=== PATIENT | female | born 1940 | race Caucasian/White ===

== ENCOUNTER → 2017-12-12 | Outpatient (CLI) | payer MEDICARE, OTHER ==
--- NOTE | 2017-12-12 17:13 | BD ---
EXAMINATION TYPE: Axial Bone Density DATE OF EXAM: 12/12/2017 COMPARISON: 10/02/2013 CLINICAL HISTORY: Height: 64 IN Weight: 179 LBS FRAX RISK QUESTIONS: Family History (Parent hip fracture): YES FATHER History of Fracture in Adulthood: RT ANKLE AGE 74 LT ANKLE AGE 67 Secondary Osteoporosis: 3. Menopause before 45: YES HYSTERECTOMY AGE 33 RISK FACTORS HISTORY OF: Active: YES Postmenopausal woman: AGE 33 MEDICATIONS: Thyroid Medications: YES Which medication: Levothyroxine How Lon+ YEARS Additional Medications: CALCIUM, VIT D, LEVOTHYROXINE, BLOOD PRESSURE MEDS, LISINOPRIL, OCUVITE, TOPR OL, BABY ASPIRIN EXAM MEASUREMENTS: Bone mineral densitometry was performed using the [employer] System. Bone mineral density as measured about the Lumbar spine is: ----- L1-L4(G/cm2): 1.037 T Score Values are as follows: ----- L2: -1.4 ----- L3: -1.1 ----- L4: -1.1 ----- L1-L4: -1.2 Bone mineral density has: Decreased -0.4% since study of: 10/02/2013 Bone mineral density about the R hip (g/cm2): 0.869 Bone mineral density about the L hip (g/cm2): 0.887 T Score values are as follows: -----R Neck: -1.2 -----L Neck: -1.1 -----R Total: -0.9 -----L Total: 0.0 Bone mineral density has: Increased 0.3% since study of: 10/02/2013 IMPRESSION: Osteopenia (T Score between -2.5 and -1). There is slightly increased risk of fracture and the patient may be considered for treatment. Re-Screen 2-5 years. NOTE: T-SCORE=SD OF THE YOUNG ADULT MEAN.
--- NOTE | 2017-12-13 08:49 | MM ---
Reason for exam: screening (asymptomatic). Last mammogram was performed 3 years and 4 months ago. History: Patient is postmenopausal. Physical Findings: A clinical breast exam by your physician is recommended on an annual basis and results should be correlated with mammographic findings. MG 3D Screening Mammo W/Cad Bilateral CC and MLO view(s) were taken. Prior study comparison: August 11, 2014, bilateral MG screening mammo w CAD. July 23, 2013, bilateral digital screening mammo w/CAD. The breast tissue is heterogeneously dense. This may lower the sensitivity of mammography. Stable benign calcifications. There is no discrete abnormality. No significant changes when compared with prior studies. ASSESSMENT: Benign, BI-RAD 2 RECOMMENDATION: Routine screening mammogram of both breasts in 1 year.
== END | disposition home or self-care (01) ==
LOC: RADMAMWWP 09:28
PROVIDERS: ATTEND Family Medicine
DX: Z12.31 Encounter for screening mammogram for malignant neoplasm of breast (principal); M85.89 Other specified disorders of bone density and structure, multiple sites; Z78.0 Asymptomatic menopausal state
CPT/HCPCS: 77063; 77067; 77080

== ENCOUNTER 2018-09-11 08:09 | Day surgery (SDC) | payer MEDICARE, OTHER ==
[2018-09-05 16:40] VITALS: BMI 28.9
[~2018-09-11 08:09] MED LIST: LACTATED RINGERS 1,000 ML IV SCH; LIDOCAINE 1% 20 ML VIAL (10MG/ML) FOR IV START INTRADERMA PRN
[2018-09-11 08:29] VITALS: RESP 18; TEMP 97.8
[2018-09-11] MEDS ORDERED: LACTATED RINGERS 1,000 ML IV ONE (08:29)
[2018-09-11] MEDS ORDERED: PROPOFOL 10 MG/ML 20 ML VIAL IV ONE (08:57)
[2018-09-11] MEDS ORDERED: LIDOCAINE 1% INJ 10MG/ML (20 ML MDV) ONE (08:57)
--- NOTE | 2018-09-11 09:02 | P.GSHP ---
History of Present Illness H&P Date: 09/11/18 Chief Complaint: Change in bowel habits, screening colonoscopy This a 77-year-old female who presents today for colonoscopy. Patient's had some complaints of change in bowel habits with increasing constipation. Past Medical History Past Medical History: Eye Disorder, GERD/Reflux, Hypertension, Thyroid Disorder Additional Past Medical History / Comment(s): LT EYE MACULAR DEGENERATION, GLAUCOMA MARIANA. History of Any Multi-Drug Resistant Organisms: None Reported Past Surgical History: Heart Catheterization, Hysterectomy Additional Past Surgical History / Comment(s): INJECTIONS IN LT EYE, LAST 09/04/18. COLONOSCOPY. VAGINAL PROLAPSE REPAIR. HEART CATH NL, "TOLD R/T STRESS." Past Anesthesia/Blood Transfusion Reactions: Previous Problems w/ Anesthesia, Motion Sickness Additional Past Anesthesia/Blood Transfusion Reaction / Comment(s): SON AWAKENED DURING SURGERY. Smoking Status: Never smoker - Past Family History Father Family Medical History: Cancer Additional Family Medical History / Comment(s): PROSTATE CA Mother Family Medical History: Cancer, COPD Additional Family Medical History / Comment(s): BLADDER CA Medications and Allergies Home Medications Medication Instructions Recorded Confirmed Type C,E,Zinc,Copper 11/Vdwjk7l/Lut 1 each PO DAILY 09/05/18 09/05/18 History [Ocuvite Adult 50 Plus Softgel] Cholecalciferol [Vitamin D3 (25 1,000 unit PO DAILY 09/05/18 09/05/18 History Mcg = 1000 Iu)] Diazepam [Valium] 5 mg PO DAILY 09/05/18 09/05/18 History Dorzolamide 2% [Trusopt 2%] 1 drop BOTH EYES DAILY 09/05/18 09/05/18 History Levothyroxine Sodium [Synthroid] 100 mcg PO DAILY 09/05/18 09/05/18 History Lisinopril-Hctz 20-12.5 mg 1 tab PO DAILY 09/05/18 09/05/18 History [Zestoretic 20-12.5] Metoprolol Succinate [Toprol XL] 200 mg PO DAILY 09/05/18 09/05/18 History Omeprazole [PriLOSEC] 20 mg PO AC-BRKFST 09/05/18 09/05/18 History Allergies Allergy/AdvReac Type Severity Reaction Status Date / Time codeine AdvReac SHAKING Verified 09/05/18 16:04 Surgical - Exam Vital Signs Temp Pulse Resp BP Pulse Ox 97.8 F 69 18 169/69 95 09/11/18 08:27 09/11/18 08:27 09/11/18 08:27 09/11/18 08:27 09/11/18 08:27 - General well developed, well nourished, no distress - Eyes PERRL - ENT normal pinna - Neck no masses - Respiratory normal expansion - Cardiovascular Rhythm: regular - Abdomen Abdomen: soft, non tender Assessment and Plan Assessment: Change pounds. We'll perform colonoscopy.
--- NOTE | 2018-09-11 09:23 | P.OP ---
Date of Procedure: 09/11/18 Preoperative Diagnosis: GERD, change in bowel habits, screening colonoscopy Postoperative Diagnosis: Antral gastritis No evidence of hiatal hernia Mild esophagitis Hemorrhoids Diverticulosis Procedure(s) Performed: EGD Colonoscopy Anesthesia: MAC Surgeon: Jeff Callahan Pathology: other (Antrum, esophagus) Condition: stable Disposition: PACU Description of Procedure: The patient's placed on the endoscopy table in the lateral position. She received IV sedation. Digital rectal exam was performed which revealed internal hemorrhoids. Possible colonoscope was then placed patient anus passed throughout the entire colon. The ileocecal valve was not visualized or tortuosity of the bowel. The scope was then withdrawn remainder the ascending colon, transverse colon and descending colon. All. In the sigmoid colon there is extensive diverticular changes. The; was very tortuous. The patient appeared to have previous evidence of diverticulitis. The scope was then brought back the rectum and this appeared normal. Scope was then brought back and removed from the patient. Next skin of the gastroscope was placed oropharynx and passed in the esophagus and into the stomach. Scope was then placed through the pylorus. The first and second portion of the duodenum appeared normal. Scope was then brought back the antrum this. Mildly inflamed. A biopsies was performed. The scope was retroflexed and remainder some appeared normal. There was no significant hiatal hernia. The distal esophagus appeared mildly inflamed. A biopsies performed. The scope was withdrawn for patient.
[2018-09-11 09:41] VITALS: BP 145/80; PULSE 61
== END 2018-09-11 10:15 | disposition home or self-care (01) ==
LOC: ORWHC2ENDO 08:09
PROVIDERS: ATTEND Surgery
DX: K21.0 Gastro-esophageal reflux disease with esophagitis (principal); K29.50 Unspecified chronic gastritis without bleeding; K59.00 Constipation, unspecified; K57.30 Diverticulosis of large intestine without perforation or abscess without bleeding; K64.8 Other hemorrhoids; Q43.9 Congenital malformation of intestine, unspecified; I10 Essential (primary) hypertension; E07.9 Disorder of thyroid, unspecified; F41.9 Anxiety disorder, unspecified; H40.9 Unspecified glaucoma; H35.30 Unspecified macular degeneration; Z97.2 Presence of dental prosthetic device (complete) (partial); Z79.890 Hormone replacement therapy; Z79.899 Other long term (current) drug therapy; Z88.5 Allergy status to narcotic agent; Z80.42 Family history of malignant neoplasm of prostate; Z80.52 Family history of malignant neoplasm of bladder
CPT/HCPCS: 45378; 43239; 88305; J2001; J2704

== ENCOUNTER → 2019-02-05 | Outpatient (CLI) | payer MEDICARE ==
--- NOTE | 2019-02-06 12:21 | MM ---
Reason for exam: screening (asymptomatic). Last mammogram was performed 1 year and 2 months ago. History: Patient is postmenopausal. Physical Findings: A clinical breast exam by your physician is recommended on an annual basis and results should be correlated with mammographic findings. MG 3D Screening Mammo W/Cad Bilateral CC and MLO view(s) were taken. Prior study comparison: December 12, 2017, bilateral MG 3d screening mammo w/cad. August 11, 2014, bilateral MG screening mammo w CAD. The breast tissue is heterogeneously dense. This may lower the sensitivity of mammography. Focal asymmetry left breast 12 o'clock. This finding is changed when compared with previous exams. ASSESSMENT: Incomplete: need additional imaging evaluation, BI-RAD 0 RECOMMENDATION: Special view mammogram of the left breast. If lesion persists on supplemental views, image directed ultrasound is recommended. [facility] will attempt to contact patient to return for supplemental views and ultrasound if indicated.
== END | disposition home or self-care (01) ==
LOC: RADMAMWWP 13:05
PROVIDERS: ATTEND Internal Medicine
DX: Z12.31 Encounter for screening mammogram for malignant neoplasm of breast (principal)
CPT/HCPCS: 77063; 77067

== ENCOUNTER → 2019-02-18 | Outpatient (CLI) | payer MEDICARE ==
--- NOTE | 2019-02-19 09:36 | MM ---
Reason for exam: additional evaluation requested from abnormal screening. Last mammogram was performed less than 1 month ago. History: Patient is postmenopausal. Physical Findings: Nurse did not find any significant physical abnormalities on exam. MG 3D Work Up W/Cad LT CC, MLO, and ML view(s) were taken of the left breast. Prior study comparison: February 05, 2019, bilateral MG 3d screening mammo w/cad. December 12, 2017, bilateral MG 3d screening mammo w/cad. Finding: There are two lesions up to 8 mm circumscribed round mass located 8-9 cm from the nipple in the lower quadrant, posterior position of the left breast. These results were verbally communicated with the patient and result sheet given to the patient on 02/18/19. ASSESSMENT: Incomplete: need additional imaging evaluation, BI-RAD 0 RECOMMENDATION: Ultrasound of the left breast.
--- NOTE | 2019-02-19 09:47 | USB ---
Reason for exam: additional evaluation requested from abnormal screening. History: Patient is postmenopausal. US Breast Workup Limited LT Left limited breast ultrasound including focal area of concern, retroareolar and axilla demonstrates a 0.5 x 0.7 x 0.5cm cystic lesion at 5 o'clock. Entirely anechoic and in dense tissue likely accounting for the lack of enhancement. Precautionary 6 month follow up of the left breast. These results were verbally communicated with the patient and result sheet given to the patient on 02/18/19. ASSESSMENT: Probably benign, BI-RAD 3 RECOMMENDATION: Follow-up diagnostic mammogram and ultrasound of the left breast in 6 months.
== END | disposition home or self-care (01) ==
LOC: RADMAMWWP 15:08
PROVIDERS: ATTEND Internal Medicine
DX: R92.8 Other abnormal and inconclusive findings on diagnostic imaging of breast (principal)
CPT/HCPCS: 77065; 76642; G0279; 77061

== ENCOUNTER → 2019-12-10 | Outpatient (CLI) | payer MEDICARE ==
--- NOTE | 2019-12-10 14:09 | MM ---
Reason for exam: follow-up at short interval from prior study. Last mammogram was performed 10 months ago. History: Patient is postmenopausal. Physical Findings: Nurse did not find any significant physical abnormalities on exam. MG 3D Diag Mammo W/Cad LT CC and MLO view(s) were taken of the left breast. Prior study comparison: February 18, 2019, left breast MG 3d work up w/cad LT. February 05, 2019, bilateral MG 3d screening mammo w/cad. The breast tissue is heterogeneously dense. This may lower the sensitivity of mammography. There is no discrete abnormality including area of concern left upper outer quadrant from prior. No significant new findings when compared with previous films. These results were verbally communicated with the patient and result sheet given to the patient on 12/10/19. ASSESSMENT: Benign, BI-RAD 2 RECOMMENDATION: Return to routine screening mammogram schedule for both breasts. Back on schedule.
--- NOTE | 2019-12-10 14:10 | USB ---
Reason for exam: follow-up at short interval from prior study. History: Patient is postmenopausal. US Breast Limited LT Left limited breast ultrasound including focal area of concern, retroareolar and axilla demonstrates a 0.3 x 0.3 x 0.3cm cystic lesion at 5 o'clock. These results were verbally communicated with the patient and result sheet given to the patient on 12/10/19. ASSESSMENT: Benign, BI-RAD 2 RECOMMENDATION: Return to routine screening mammogram schedule for both breasts. Back on schedule.
== END | disposition home or self-care (01) ==
LOC: RADMAMWWP 12:57
PROVIDERS: ATTEND Internal Medicine
DX: R92.8 Other abnormal and inconclusive findings on diagnostic imaging of breast (principal)
CPT/HCPCS: 77065; 76642; G0279; 77061

== ENCOUNTER → 2020-04-20 | Outpatient (CLI) | payer MEDICARE ==
--- NOTE | 2020-04-22 09:55 | MM ---
Reason for exam: screening (asymptomatic). Last mammogram was performed 4 months ago. History: Patient is postmenopausal. Physical Findings: A clinical breast exam by your physician is recommended on an annual basis and results should be correlated with mammographic findings. MG 3D Screening Mammo W/Cad Bilateral CC and MLO view(s) were taken. Prior study comparison: December 10, 2019, left breast MG 3d diag mammo w/cad LT. February 18, 2019, left breast MG 3d work up w/cad LT. The breast tissue is extremely dense which could obscure a lesion on mammography. Finding: There are typically benign fine, diffuse/scattered calcifications in both breasts. Stable distortion left upper MLO view. No significant changes in finding since December 10, 2019 and February 18, 2019. ASSESSMENT: Benign, BI-RAD 2 RECOMMENDATION: Routine screening mammogram of both breasts in 1 year.
== END | disposition home or self-care (01) ==
LOC: RADMAMWWP 10:17
PROVIDERS: ATTEND Internal Medicine
DX: Z12.31 Encounter for screening mammogram for malignant neoplasm of breast (principal)
CPT/HCPCS: 77063; 77067

== ENCOUNTER → 2020-08-11 | Outpatient (CLI) | payer MEDICARE ==
--- NOTE | 2020-08-11 10:49 | XR ---
EXAMINATION TYPE: XR ribs LT w pa chest xray DATE OF EXAM: 08/11/2020 COMPARISON: NONE HISTORY: Left rib pain TECHNIQUE: 5 views submitted FINDINGS: There is biapical pleural thickening greater on the right. The lungs are clear and there is no pleural effusion. Prominent pericardial fat pad on the left noted. No overt failure. Heart size n ormal. No consolidative pneumonia. Rib cage intact. IMPRESSION: 1. Biapical pleural thickening. 2. No acute displaced rib fracture.
== END | disposition home or self-care (01) ==
LOC: RADXRYALE 10:11
PROVIDERS: ATTEND Internal Medicine
DX: R91.8 Other nonspecific abnormal finding of lung field (principal)

== ENCOUNTER → 2020-08-27 | Outpatient (CLI) | payer MEDICARE ==
--- NOTE | 2020-08-27 14:25 | CT ---
EXAMINATION TYPE: CT chest w con DATE OF EXAM: 08/27/2020 COMPARISON: None HISTORY: Lower left anterior rib pain. CT DLP: 333.4 mGycm Automated exposure control for dose reduction was used. CONTRAST: Performed with IV Contrast, patient injected with 80 mL of Isovue M300. Images obtained from the thoracic inlet to the diaphragm with IV contrast. There is some mild pleural thickening at the lung apices. There is no pleural effusion. There is no p ericardial effusion. Heart appears borderline enlarged. There are no hilar masses. There is no medias tinal adenopathy. Thoracic aorta is intact. There is no aneurysm or dissection. The ascending aorta m easures 3 cm. Liver and spleen appear intact. Thoracic spine is intact. There is no compression fracture. Shoulder joints are intact. There is no evidence of a rib fracture. There are bilateral renal cortical cysts. There is no evidence of a pulmonary mass. I see no filling defects in the pulmonary arteries. IMPRESSION: Minimal pleural and pulmonary scarring at the lung apices. No evidence of acute lung disease. Borderl ine cardiomegaly.
== END | disposition home or self-care (01) ==
LOC: RADCTMAIN 10:40
PROVIDERS: ATTEND Internal Medicine
DX: J98.4 Other disorders of lung (principal); I51.7 Cardiomegaly
CPT/HCPCS: 82565; 84520; 71260; 36415; Q9967

== ENCOUNTER → 2021-05-06 | Outpatient (CLI) | payer MEDICARE ==
--- NOTE | 2021-05-06 13:22 | CT ---
EXAMINATION TYPE: CT angio chest DATE OF EXAM: 05/06/2021 COMPARISON: CT chest August 27, 2020 HISTORY: PE follow up CT DLP: 297.1 mGycm. Automated Exposure Control for Dose Reduction was Utilized. CONTRAST: CTA scan of the thorax is performed with IV Contrast, patient injected with 62 ml mL of Isovue 300, p ulmonary embolism protocol. MIP Images are created on CT scanner and reviewed. FINDINGS: LUNGS: [id number] apical pleural/parenchymal scarring is redemonstrated. Mild anterior left upp er lung linear scarring is again seen. No new suspicious focal consolidation. There is mild left basi lar linear scarring and/or atelectasis redemonstrated. There is no pleural effusion or pneumothorax seen. The tracheobronchial tree is patent. MEDIASTINUM: There is satisfactory enhancement of the pulmonary artery and its branches, there is no CT evidence for pulmonary embolism on current study. There are no new greater than 1 cm hilar or medi astinal lymph nodes. Heart size stable and upper limits of normal. No new pericardial effusion is see n. OTHER: Mild multilevel spurring in the spine. Prominent air-fluid level near the gallbladder fossa li dylan reflects diverticulum near gastroduodenal junction is partially imaged. There is cortical thinni ng with thin-walled cysts in the upper poles of both kidneys that are redemonstrated. IMPRESSION: No CT evidence for acute pulmonary embolism. No suspicious acute pulmonary process.
--- NOTE | 2021-05-06 14:27 | US ---
EXAMINATION TYPE: US venous doppler duplex LE LT DATE OF EXAM: 05/06/2021 1:35 PM COMPARISON: NONE CLINICAL HISTORY: [id number], [id number]. PE 2020, on blood thinner now SIDE PERFORMED: Left TECHNIQUE: The lower extremity deep venous system is examined utilizing real time linear array sonog leyla with graded compression, doppler sonography and color-flow sonography. VESSELS IMAGED: Common Femoral Vein Deep Femoral Vein Greater Saphenous Vein * Femoral Vein Popliteal Vein Small Saphenous Vein * Proximal Calf Veins (* superficial vessels) There is normal flow, compressibility, vascular waveforms. Left Leg: Negative for DVT. Left groin lymph node is seen = 2.9 x 1.1 x 0.8cm, benign-appearing left groin node IMPRESSION: No evident deep venous thrombosis from the level of the knee centrally
== END | disposition home or self-care (01) ==
LOC: RADCTMAIN 11:32
PROVIDERS: ATTEND Internal Medicine Hematology & Oncology
DX: D68.59 Other primary thrombophilia (principal)
CPT/HCPCS: 82565; 84520; 93971; 71275; 36415; Q9967

== ENCOUNTER → 2021-07-13 | Outpatient (CLI) | payer MEDICARE ==
--- NOTE | 2021-07-13 16:55 | US ---
EXAMINATION TYPE: US venous doppler duplex LE RT DATE OF EXAM: 07/13/2021 4:26 PM COMPARISON: NONE CLINICAL HISTORY: R22.41 LOCALIZED SWELLING, MASS AND LUMP, RIGHT LOWER LIMB. Right leg pain, patient on blood thinners SIDE PERFORMED: Right TECHNIQUE: The lower extremity deep venous system is examined utilizing real time linear array sonog leyla with graded compression, doppler sonography and color-flow sonography. VESSELS IMAGED: Common Femoral Vein Deep Femoral Vein Greater Saphenous Vein * Femoral Vein Popliteal Vein Small Saphenous Vein * Proximal Calf Veins (* superficial vessels) Right Leg: Appears negative for DVT IMPRESSION: No evidence of deep vein thrombosis in the right leg.
== END | disposition home or self-care (01) ==
LOC: RADUSWWP 15:55
PROVIDERS: ATTEND Internal Medicine
DX: R22.41 Localized swelling, mass and lump, right lower limb (principal)

== ENCOUNTER → 2021-07-18 | Outpatient (CLI) | payer MEDICARE ==
--- NOTE | 2021-07-19 10:57 | MM ---
Reason for exam: screening (asymptomatic). Last mammogram was performed 1 year and 3 months ago. History: Patient is postmenopausal. Physical Findings: A clinical breast exam by your physician is recommended on an annual basis and results should be correlated with mammographic findings. MG 3D Screening Mammo W/Cad Bilateral CC and MLO view(s) were taken. Prior study comparison: April 20, 2020, bilateral MG 3d screening mammo w/cad. December 10, 2019, left breast MG 3d diag mammo w/cad LT. The breast tissue is heterogeneously dense. This may lower the sensitivity of mammography. Finding: There are typically benign diffuse/scattered calcifications in both breasts. No significant changes in finding since April 20, 2020 and December 10, 2019. ASSESSMENT: Benign, BI-RAD 2 RECOMMENDATION: Routine screening mammogram of both breasts in 1 year.
== END | disposition home or self-care (01) ==
LOC: RADMAMWWP 11:28
PROVIDERS: ATTEND Internal Medicine
DX: Z12.31 Encounter for screening mammogram for malignant neoplasm of breast (principal); R92.1 Mammographic calcification found on diagnostic imaging of breast; Z78.0 Asymptomatic menopausal state
CPT/HCPCS: 77063; 77067

== ENCOUNTER 2022-04-16 09:24 | Emergency (ER) | payer MEDICARE ==
[2022-04-16 09:36] VITALS: RESP 18
[2022-04-16] MEDS ORDERED: ONDANSETRON 4 MG/2 ML VIAL IVP STA (09:50)
[2022-04-16] MEDS ORDERED: SODIUM CHLORIDE 0.9% 1,000 ML IV STA (09:50)
[2022-04-16] MEDS ORDERED: HYDROmorphone 0.5 MG/0.5 ML SYRINGE IVP STA ×2 (09:51→11:51)
[2022-04-16 10:26] LABS: Appearance,Urine Clear (Clear); Bilirubin,Urine Negative (Negative); Blood,Urine Negative (Negative); Color,Urine Light Yellow; Glucose,Urine (UA) 3+ (Negative); Ketones,Urine Negative (Negative); Leukocyte Esterase,Urine Negative (Negative); Nitrite,Urine Negative (Negative); PH, Urine 5.5 (5.0-8.0); Protein,Urine Negative (Negative); Specific Gravity,Urine 1.013 (1.001-1.035); Urobilinogen,Urine <2.0 mg/dL (<2.0)
[2022-04-16 10:29] LABS: Basophils % (A) 1 %; Eosinophils # (A) 0.2 k/uL (0-0.7); Eosinophils % (A) 3 %; HCT 40.8 % (34.0-46.0); Lymphocytes # (A) 1.3 k/uL (1.0-4.8); Lymphocytes % (A) 17 %; MCH 31.6 pg (25.0-35.0); MCHC 34.2 g/dL (31.0-37.0); MCV 92.4 fL (80.0-100.0); Mean Platelet Volume 8.4; Monocytes # (A) 0.4 k/uL (0-1.0); Monocytes % (A) 5 %; Neutrophils # (A) 5.3 k/uL (1.3-7.7); Neutrophils % (A) 71 %; Platelet Count 247 k/uL (150-450); RBC 4.42 m/uL (3.80-5.40); RDW 12.7 % (11.5-15.5); WBC 7.4 k/uL (3.8-10.6)
[2022-04-16 10:50] LABS: Total Bilirubin 0.8 mg/dL (0.2-1.3)
[2022-04-16 10:55] LABS: Albumin 4.7 g/dL (3.5-5.0); Total Protein 8.1 g/dL (6.3-8.2)
--- NOTE | 2022-04-16 10:57 | ED ---
Abdominal Pain HPI - General Chief Complaint: Abdominal Pain Stated Complaint: kidney pain Time Seen by Provider: 04/16/22 09:39 Source: patient, RN notes reviewed Mode of arrival: ambulatory Limitations: no limitations - History of Present Illness Initial Comments: 81-year-old female presents emergency Department with chief complaint of left flank pain. Patient states that she's been having ongoing left-sided abdominal pain but last 24 she had increase in severe pain. She was seen at [facility] yesterday in which she states she had full set of labs, CT of abdomen and pelvis showing renal cysts, patient was diagnosed with pyelonephritis, UTI. Patient states pain is increased unable tolerate. Patient states that she try some pain meds prior arrival no relief. She denies any nausea vomiting diarrhea constipation. - Related Data Home Medications Medication Instructions Recorded Confirmed C,E,Zinc,Copper 11/Padiw0u/Lut 1 each PO DAILY 09/05/18 09/05/18 [Ocuvite Adult 50 Plus Softgel] Cholecalciferol [Vitamin D3 (25 1,000 unit PO DAILY 09/05/18 09/05/18 Mcg = 1000 Iu)] Dorzolamide 2% [Trusopt 2%] 1 drop BOTH EYES DAILY 09/05/18 09/05/18 Levothyroxine Sodium [Synthroid] 100 mcg PO DAILY 09/05/18 09/05/18 Lisinopril-Hctz 20-12.5 mg 1 tab PO DAILY 09/05/18 09/05/18 [Zestoretic 20-12.5] Metoprolol Succinate [Toprol XL] 200 mg PO DAILY 09/05/18 09/05/18 Omeprazole [PriLOSEC] 20 mg PO AC-BRKFST 09/05/18 09/05/18 diazePAM [Valium] 5 mg PO DAILY 09/05/18 09/05/18 Previous Rx's Medication Instructions Recorded HYDROcodone/APAP 5-325MG [[place]edo 5] 1 each PO Q6HR PRN #12 tab 04/16/22 valACYclovir HCL [Valtrex] 1,000 mg PO TID #30 tablet 04/16/22 Allergies Allergy/AdvReac Type Severity Reaction Status Date / Time codeine AdvReac SHAKING Verified 04/16/22 09:36 Review of Systems ROS Statement: Those systems with pertinent positive or pertinent negative responses have been documented in the HPI. ROS Other: All systems not noted in ROS Statement are negative. Past Medical History Past Medical History: Diabetes Mellitus, Eye Disorder, GERD/Reflux, Hypertension, Thyroid Disorder Additional Past Medical History / Comment(s): LT EYE MACULAR DEGENERATION, GLAUCOMA MARIANA. History of Any Multi-Drug Resistant Organisms: None Reported Past Surgical History: Heart Catheterization, Hysterectomy Additional Past Surgical History / Comment(s): INJECTIONS IN LT EYE, LAST 09/04/18. COLONOSCOPY. VAGINAL PROLAPSE REPAIR. HEART CATH NL, "TOLD R/T STRESS." Past Anesthesia/Blood Transfusion Reactions: Previous Problems w/ Anesthesia, Motion Sickness Additional Past Anesthesia/Blood Transfusion Reaction / Comment(s): SON AWAKENED DURING SURGERY. Past Psychological History: Anxiety Smoking Status: Never smoker Past Alcohol Use History: Rare Past Drug Use History: None Reported - Past Family History Father Family Medical History: Cancer Additional Family Medical History / Comment(s): PROSTATE CA Mother Family Medical History: Cancer, COPD Additional Family Medical History / Comment(s): BLADDER CA General Exam Limitations: no limitations General appearance: alert, in no apparent distress Head exam: Present: atraumatic, normocephalic, normal inspection Eye exam: Present: normal appearance, PERRL, EOMI. Absent: scleral icterus, conjunctival injection, periorbital swelling ENT exam: Present: normal exam, normal oropharynx, mucous membranes moist Neck exam: Present: normal inspection, full ROM. Absent: tenderness, meningismus, lymphadenopathy Respiratory exam: Present: normal lung sounds bilaterally. Absent: respiratory distress, wheezes, rales, rhonchi, stridor Cardiovascular Exam: Present: regular rate, normal rhythm, normal heart sounds. Absent: systolic murmur, diastolic murmur, rubs, gallop, clicks GI/Abdominal exam: Present: soft, tenderness, normal bowel sounds. Absent: distended, guarding, rebound, rigid Back exam: Present: CVA tenderness (L). Absent: CVA tenderness (R) Neurological exam: Present: alert, oriented X3, CN II-XII intact Skin exam: Present: warm, dry, intact, normal color. Absent: rash Course Vital Signs 04/16/22 04/16/22 09:30 10:11 Temperature 97.9 F Pulse Rate 86 83 Respiratory 18 18 Rate Blood Pressure 129/77 148/88 O2 Sat by Pulse 97 98 Oximetry Medical Decision Making - Medical Decision Making Was pt. sent in by a medical professional or institution? @ -no Did you speak to anyone other than the patient for history? @ -no Did you review nursing and triage notes? @ -Reviewed and agreed Were old charts reviewed? @ -I did obtain the records from [facility] including labs, CT patient had no leukocytosis, CT of the abdomen and pelvis showed renal cysts, divert iculosis otherwise no acute process. Patient did have nitrate positive urine, creatinine was 1.9 Differential Diagnosis? @ -[Kidney stone, pyelonephritis, UTI, diverticulitis, colitis, shingles, this list is not meant to be all-inclusive EKG interpreted by me (3pts min.)? @ -Non X-rays interpreted by me (1pt min.)? @ no CT interpreted by me (1pt min.)? @ -no U/S interpreted by me (1pt. min.)? @ -no What testing was considered but not performed? (CT, X-rays, U/S, labs)? Why? @ CT was considered though was able to obtain prior CT from 24 hours ago What meds were considered but not given? Why? @ -none Did you discuss the management of the patient with other professionals? @ -no Did you reconcile home meds? @ -no Was smoking cessation discussed for >3mins.? @ -no Was critical care preformed (if so, how long)? @ -no Were there social determinants of health that impacted care today? How? (Homelessness, low income, unemployed, alcoholism, drug addiction, transportation, low edu. Level, literacy, decrease access to med. care, intermediate, rehab)? @ -no Was there de-escalation of care discussed even if they declined? (Discuss DNR or withdrawal of care, Hospice)? @ -no What co-morbidities impacted this encounter? (DM, HTN, Smoking, COPD, CAD, Cancer, CVA, Hep., AIDS, mental health diagnosis, sleep apnea, morbid obesity)? @ -DM, HTN, Was patient admitted / discharged? @ -Discharged Undiagnosed new problem with uncertain prognosis? @ -no Drug Therapy requiring intensive monitoring for toxicity (Heparin, Nitro, Insulin, Cardizem)? @ -no Were any procedures done? @ -no Diagnosis/symptom? @ -Flank pain Acute, or Chronic, or Acute on Chronic? @ -acute on chronic Uncomplicated (without systemic symptoms) or Complicated (systemic symptoms)? @ -Uncomplicated Side effects of treatment? @ -No Exacerbation, Progression, or Severe Exacerbation] @ -No Poses a threat to life or bodily function? @ -no Diagnosis/symptom? @ -Shingles Acute, or Chronic, or Acute on Chronic? @ -Acute Uncomplicated (without systemic symptoms) or Complicated (systemic symptoms)? @ -Uncomplicated Side effects of treatment? @ -No Exacerbation, Progression, or Severe Exacerbation] @ -no Poses a threat to life or bodily function? @ -no 81-year-old female presented for left flank pain. Patient has had ongoing issues with this pain but this is acute on chronic pain. Patient is very sensitive to light touch. Concerning for early signs shingles is 1 sore noted. Patient will be discharged on Valtrex. I did obtain prior records which show no acute process. Patient has no significant evidence UTI or any other process. - Lab Data Result diagrams: 04/16/22 10:10 04/16/22 10:10 Lab Results 04/16/22 04/16/22 04/16/22 Range/Units 10:10 10:10 10:10 WBC 7.4 (3.8-10.6) k/uL RBC 4.42 (3.80-5.40) m/uL Hgb 14.0 (11.4-16.0) gm/dL Hct 40.8 (34.0-46.0) % MCV 92.4 (80.0-100.0) fL MCH 31.6 (25.0-35.0) pg MCHC 34.2 (31.0-37.0) g/dL RDW 12.7 (11.5-15.5) % Plt Count 247 (150-450) k/uL MPV 8.4 Neutrophils % 71 % Lymphocytes % 17 % Monocytes % 5 % Eosinophils % 3 % Basophils % 1 % Neutrophils # 5.3 (1.3-7.7) k/uL Lymphocytes # 1.3 (1.0-4.8) k/uL Monocytes # 0.4 (0-1.0) k/uL Eosinophils # 0.2 (0-0.7) k/uL Basophils # 0.0 (0-0.2) k/uL Sodium 140 (137-145) mmol/L Potassium 5.0 (3.5-5.1) mmol/L Chloride 103 (98-107) mmol/L Carbon Dioxide 27 (22-30) mmol/L Anion Gap 10 mmol/L BUN 41 H (7-17) mg/dL Creatinine 1.30 H (0.52-1.04) mg/dL Est GFR (CKD-EPI)AfAm 45 (>60 ml/min/1.73 sqM) Est GFR (CKD-EPI)NonAf 39 (>60 ml/min/1.73 sqM) Glucose 129 H (74-99) mg/dL Plasma Lactic Acid Alf (0.7-2.0) mmol/L Calcium 9.0 (8.4-10.2) mg/dL Total Bilirubin 0.8 (0.2-1.3) mg/dL AST 52 H (14-36) U/L ALT 53 H (4-34) U/L Alkaline Phosphatase 57 (38-126) U/L Total Protein 8.1 (6.3-8.2) g/dL Albumin 4.7 (3.5-5.0) g/dL Lipase 111 (23-300) U/L Urine Color Light Yellow Urine Appearance Clear (Clear) Urine pH 5.5 (5.0-8.0) Ur Specific [place] 1.013 (1.001-1.035) Urine Protein Negative (Negative) Urine Glucose (UA) 3+ H (Negative) Urine Ketones Negative (Negative) Urine Blood Negative (Negative) Urine Nitrite Negative (Negative) Urine Bilirubin Negative (Negative) Urine Urobilinogen <2.0 (<2.0) mg/dL Ur Leukocyte Esterase Negative (Negative) 04/16/22 Range/Units 10:10 WBC (3.8-10.6) k/uL RBC (3.80-5.40) m/uL Hgb (11.4-16.0) gm/dL Hct (34.0-46.0) % MCV (80.0-100.0) fL MCH (25.0-35.0) pg MCHC (31.0-37.0) g/dL RDW (11.5-15.5) % Plt Count (150-450) k/uL MPV Neutrophils % % Lymphocytes % % Monocytes % % Eosinophils % % Basophils % % Neutrophils # (1.3-7.7) k/uL Lymphocytes # (1.0-4.8) k/uL Monocytes # (0-1.0) k/uL Eosinophils # (0-0.7) k/uL Basophils # (0-0.2) k/uL Sodium (137-145) mmol/L Potassium (3.5-5.1) mmol/L Chloride (98-107) mmol/L Carbon Dioxide (22-30) mmol/L Anion Gap mmol/L BUN (7-17) mg/dL Creatinine (0.52-1.04) mg/dL Est GFR (CKD-EPI)AfAm (>60 ml/min/1.73 sqM) Est GFR (CKD-EPI)NonAf (>60 ml/min/1.73 sqM) Glucose (74-99) mg/dL Plasma Lactic Acid Alf 1.2 (0.7-2.0) mmol/L Calcium (8.4-10.2) mg/dL Total Bilirubin (0.2-1.3) mg/dL AST (14-36) U/L ALT (4-34) U/L Alkaline Phosphatase (38-126) U/L Total Protein (6.3-8.2) g/dL Albumin (3.5-5.0) g/dL Lipase (23-300) U/L Urine Color Urine Appearance (Clear) Urine pH (5.0-8.0) Ur Specific [place] (1.001-1.035) Urine Protein (Negative) Urine Glucose (UA) (Negative) Urine Ketones (Negative) Urine Blood (Negative) Urine Nitrite (Negative) Urine Bilirubin (Negative) Urine Urobilinogen (<2.0) mg/dL Ur Leukocyte Esterase (Negative) Disposition Clinical Impression: Flank pain, Renal cyst, Shingles Disposition: HOME SELF-CARE Condition: Stable Instructions (If sedation given, give patient instructions): Flank Pain (ED) Additional Instructions: Please return to the Emergency Department if symptoms worsen or any other concerns. Prescriptions: HYDROcodone/APAP 5-325MG [[place] 5] 1 each PO Q6HR PRN #12 tab PRN Reason: Pain valACYclovir HCL [Valtrex] 1,000 mg PO TID #30 tablet Is patient prescribed a controlled substance at d/c from ED?: Yes When asked, does pt state using other controlled substances?: No If prescribed controlled substance>3 days was MAPS reviewed?: Prescribed <3 Days If opioid is for acute pain is fill amount 7 days or less?: Yes If Rx opioid, was Start Talking consent form obtained?: Yes Referrals: Maria Ines Mendoza MD [Primary Care Provider] - 1-2 days Time of Disposition: 11:51
[2022-04-16 12:20] VITALS: BP 138/62; PULSE 72; TEMP 98
== END 2022-04-16 12:22 | disposition home or self-care (01) ==
LOC: EC 09:24
DX: N28.1 Cyst of kidney, acquired (principal); B02.9 Zoster without complications; I10 Essential (primary) hypertension; E11.9 Type 2 diabetes mellitus without complications; K21.9 Gastro-esophageal reflux disease without esophagitis; E07.9 Disorder of thyroid, unspecified; F41.9 Anxiety disorder, unspecified; Z88.5 Allergy status to narcotic agent; Z79.890 Hormone replacement therapy; Z79.899 Other long term (current) drug therapy
CPT/HCPCS: 36415; 80053; 83605; 83690; 85025; 81003; 99284; 96374; 96375; 96376; 96361; J2405; J1170

== ENCOUNTER → 2022-04-18 | Outpatient (CLI) | payer MEDICARE ==
--- NOTE | 2022-04-18 11:45 | XR ---
EXAMINATION TYPE: XR ribs LT w pa chest xray DATE OF EXAM: 04/18/2022 11:37 AM INDICATION: Patient age:Female; 81 years old; Reason for study: [id number] INTERCOSTAL PAIN; COMPARISON: 08/03/2020 TECHNIQUE: Frontal and oblique views of the left ribs with frontal chest radiograph. FINDINGS: No displaced fracture definitely visualized. There is ossification of the costochondral car tilage. The remaining thorax and heart appear grossly unremarkable. IMPRESSION: No acute osseous pathology.
== END | disposition home or self-care (01) ==
LOC: RADXRYALE 11:19
PROVIDERS: ATTEND Internal Medicine
DX: R07.82 Intercostal pain (principal)

== ENCOUNTER → 2022-08-09 | Outpatient (CLI) | payer MEDICARE ==
--- NOTE | 2022-08-10 09:05 | MM ---
Reason for Exam: Screening (asymptomatic). Last screening mammogram was performed 12 month(s) ago. Patient History: Menarche at age 13. First Full-Term at age 25. Hysterectomy at age 33. Postmenopausal. Patient has history of breast feeding. Risk Values: Oma 5 year model risk: 1.7%. NCI Lifetime model risk: 2.8%. Prior Study Comparison: 12/10/2019 Left Diagnostic Mammogram, [facility]. 04/20/2020 Bilateral Screening Mammogram, [facility]. 07/18/2021 Bilateral Screening Mammogram, [facility]. Tissue Density: The breast tissue is heterogeneously dense. This may lower the sensitivity of mammography. Findings: Analyzed By CAD. There is no suspicious group of microcalcifications or new suspicious mass in either breast. Stable scattered benign calcifications. Overall Assessment: Benign, BI-RAD 2 Management: Screening Mammogram of both breasts in 1 year. A clinical breast exam by your physician is recommended on an annual basis and results should be correlated with mammographic findings. Electronically signed and approved by: Evens Holden M.D. Radiologis
== END | disposition home or self-care (01) ==
LOC: RADMAMWWP 11:25
PROVIDERS: ATTEND Internal Medicine
DX: Z12.31 Encounter for screening mammogram for malignant neoplasm of breast (principal); Z78.0 Asymptomatic menopausal state
CPT/HCPCS: 77063; 77067

== ENCOUNTER → 2023-08-21 | Outpatient (CLI) | payer MEDICARE ==
--- NOTE | 2023-08-23 11:22 | MM ---
Reason for Exam: Screening (asymptomatic). Last mammogram was performed 1 year(s) and 1 month(s) ago. Patient History: Menarche at age 13. First Full-Term at age 25. Hysterectomy at age 33. Postmenopausal. Patient has history of breast feeding. Risk Values: Oma 5 year model risk: 1.6%. NCI Lifetime model risk: 2.5%. Prior Study Comparison: 04/20/2020 Bilateral Screening Mammogram, [facility]. 07/18/2021 Bilateral Screening Mammogram, [facility]. 08/09/2022 Bilateral MG 3D screening mammo w/cad, [facility]. Tissue Density: The breasts are heterogeneously dense, which may obscure small masses. Findings: Analyzed By CAD. Stable benign-appearing calcifications. No architectural distortion. There is a nodular density seen on the CC view only within the outer aspect of the breast. Recommend rolled CC medial and spot compression view. Overall Assessment: Incomplete: need additional imaging evaluation, BI-RAD 0 Management: Diagnostic Mammogram of the right breast. . Patient should continue monthly self-breast exams. A clinical breast exam by your physician is recommended on an annual basis. This exam should not preclude additional follow-up of suspicious palpable abnormalities. Note on Oma scores and lifetime risk: 1. A Moa score greater than 3% is considered moderate risk. If this is the case, consider specialist referral to assess eligibility for a risk reducing agent. 2. If overall lifetime risk for the development of breast cancer is 20% or higher, the patient may qualify for future screening with alternating mammogram and breast MRI. Electronically signed and approved by: Otoniel Locke M.D. Radiologis
== END | disposition home or self-care (01) ==
LOC: RADMAMWWP 12:39
PROVIDERS: ATTEND Internal Medicine
DX: Z12.31 Encounter for screening mammogram for malignant neoplasm of breast (principal); Z78.0 Asymptomatic menopausal state
CPT/HCPCS: 77063; 77067

== ENCOUNTER → 2023-08-27 | Outpatient (CLI) | payer MEDICARE ==
--- NOTE | 2023-08-27 09:34 | MM ---
Reason for Exam: Additional evaluation requested from abnormal screening. Last screening mammogram was performed less than 1 month ago. Patient History: Menarche at age 13. First Full-Term at age 25. Hysterectomy at age 33. Postmenopausal. Patient has history of breast feeding. Risk Values: Oma 5 year model risk: 1.6%. NCI Lifetime model risk: 2.5%. Prior Study Comparison: 03/20/2008 Screening Mammogram, [facility]. 03/23/2009 Screening Mammogram, [facility]. 05/03/2012 Bilateral Screening Mammogram, [facility]. 07/23/2013 Bilateral Screening Mammogram, [facility]. 08/11/2014 Bilateral Screening Mammogram, [facility]. 12/12/2017 Bilateral Screening Mammogram, [facility]. 02/05/2019 Bilateral Screening Mammogram, [facility]. 02/18/2019 Left Diagnostic Mammogram, [facility]. 02/18/2019 Left Diagnostic Ultrasound, [facility]. 12/10/2019 Left Diagnostic Mammogram, [facility]. 12/10/2019 Left Diagnostic Ultrasound, [facility]. 04/20/2020 Bilateral Screening Mammogram, [facility]. 07/18/2021 Bilateral Screening Mammogram, [facility]. 08/09/2022 Bilateral MG 3D screening mammo w/cad, [facility]. 08/21/2023 Bilateral MG 3D screening mammo w/cad, [facility]. Tissue Density: Right: The breasts are heterogeneously dense, which may obscure small masses. Findings: Analyzed By CAD. 9 mm circumscribed nodule persists on the CC rolled view but becomes less defined on the spot compression view and not well seen on the 3-D lateral view. We note that the nipple was out of profile on the screening CC view. Further ultrasound evaluation is recommended. The patient has chronic bilateral nipple inversion. Overall Assessment: Incomplete: need additional imaging evaluation, BI-RAD 0 Management: Diagnostic Breast Ultrasound of the right breast. Electronically signed and approved by: Daron Christopher M.D. Radiologist
--- NOTE | 2023-08-27 10:39 | USB ---
Reason for Exam: Additional evaluation requested from abnormal screening. Patient History: Menarche at age 13. First Full-Term at age 25. Hysterectomy at age 33. Postmenopausal. Patient has history of breast feeding. Risk Values: Oma 5 year model risk: 1.6%. NCI Lifetime model risk: 2.5%. Technique: Method: Targeted. Prior Study Comparison: 07/18/2021 Bilateral Screening Mammogram, [facility]. 08/09/2022 Bilateral MG 3D screening mammo w/cad, [facility]. 08/21/2023 Bilateral MG 3D screening mammo w/cad, [facility]. Findings: The lateral section of the breast of the right breast, the axilla of the right breast and the retroareolar of the right breast were scanned. Targeted ultrasound lateral aspect of the right breast 7:00 to 11:00 including scanning of the subareolar region and axilla. There is duct ectasia behind the nipple but no solid or cystic lesion or axillary lymphadenopathy. Overall Assessment: Probably benign, BI-RAD 3 Management: Diagnostic Mammogram of the right breast in 6 months. A clinical breast exam by your physician is recommended on an annual basis and results should be correlated with mammographic findings. This exam should not preclude additional follow-up of suspicious palpable abnormalities. Results were given to the patient verbally at the time of exam. Electronically signed and approved by: Daron Christopher M.D. Radiologist
== END | disposition home or self-care (01) ==
LOC: RADMAMWWP 08:50
PROVIDERS: ATTEND Internal Medicine
DX: R92.331 Mammographic heterogeneous density, right breast (principal); Z78.0 Asymptomatic menopausal state
CPT/HCPCS: 77065; 76642; G0279; 77061

== ENCOUNTER → 2023-12-31 | Outpatient (CLI) | payer MEDICARE ==
--- NOTE | 2024-01-01 23:27 | BD ---
EXAMINATION TYPE: Axial Bone Density DATE OF EXAM: 12/31/2023 CLINICAL HISTORY: 83 years old Female. ICD-10 CODE: N95.8 OTHER SPECIFIED MENOPAUSAL Height: 5 ft 3 1/2 in Weight: 169 FRAX RISK QUESTIONS: Alcohol (3 or more units per day): no Family History (Parent hip fracture): yes Glucocorticoids (More than 3mos): no (Ex: prednisone, prednisolone, methylprednisolone, dexamethasone, and hydrocortisone). History of Fracture in Adulthood: yes Secondary Osteoporosis: 1. Type 1 Diabetes: type 2 2. Hyperthyroidism: no 3. Menopause before 45: yes 4. Malnutrition: no 5. Chronic liver disease: no Rheumatoid Arthritis: no Current Tobacco Use: no RISK FACTORS HISTORY OF: Surgery to Spine/Hip(right/left)/Wrist (right/left): no MEDICATIONS: Thyroid Medications: yes Which medication: levothyroxine How Long: sev years Osteoporosis Medications: no EXAM MEASUREMENTS: Bone mineral densitometry was performed using the [employer]. Bone mineral density as measured about the Lumbar spine is: ----- L1-L4(G/cm2): 0.992 T Score Values are as follows: ----- L1: -1.8 ----- L2: -1.3 ----- L3: -1.7 ----- L4: -1.6 ----- L1-L4: -1.6 Z Score Values are as follows: ----- L1: -0.3 ----- L2: 0.2 ----- L3: -0.2 ----- L4: -0.1 ----- L1-L4: -0.1 Bone mineral density has: decreased -4.3 % since study of: 2018 Bone mineral density about the R hip (g/cm2): 0.902 Bone mineral density about the L hip (g/cm2): 0.937 T Score values are as follows: -----R Neck: -1.0 -----L Neck: -0.7 -----R Total: -0.9 -----L Total: -0.2 Z Score values are as follows: -----R Neck: 1.0 -----L Neck: 1.2 -----R Total: 0.8 -----L Total: 1.6 Bone mineral density has: decreased -1.3 % since study of: 2018 FRAX%s: The graph provided illustrates a 25.8 % chance for a major osteoporotic fx and a 12.3 % chanc e for the hips probability for fx in 10 years time. IMPRESSION: Osteopenia (T Score between -2.5 and -1). There is slightly increased risk of fracture and the patient may be considered for treatment. Re-Screen 2-5 years. NOTE: T-SCORE=SD OF THE YOUNG ADULT MEAN. [facility], , 01/01/2024 11:24 PM
== END | disposition home or self-care (01) ==
LOC: RADBDWWP 09:58
PROVIDERS: ATTEND Internal Medicine
DX: N95.8 Other specified menopausal and perimenopausal disorders
CPT/HCPCS: 77080

== ENCOUNTER → 2024-03-06 | Outpatient (CLI) | payer MEDICARE ==
--- NOTE | 2024-03-11 13:09 | MM ---
Reason for Exam: Follow-up at short interval from prior study. Last screening mammogram was performed 6 month(s) ago. Patient History: Menarche at age 13. First Full-Term at age 25. Hysterectomy at age 33. Postmenopausal. Patient has history of breast feeding. Risk Values: Oma 5 year model risk: 1.6%. NCI Lifetime model risk: 2.3%. Prior Study Comparison: 08/09/2022 Bilateral MG 3D screening mammo w/cad, [facility]. 08/21/2023 Bilateral MG 3D screening mammo w/cad, [facility]. 08/27/2023 Right MG 3D work up w/cad RT, [facility]. Tissue Density: Right: The breasts are heterogeneously dense, which may obscure small masses. Findings: Analyzed By CAD. Duct Ectasia is redemonstrated. Scattered benign calcifications persists without suspicious cluster. No mass or distortion. Overall Assessment: Benign, BI-RAD 2 Management: Screening Mammogram of both breasts in 6 months. . Results were given to the patient verbally at the time of exam. Patient should continue monthly self-breast exams. A clinical breast exam by your physician is recommended on an annual basis. This exam should not preclude additional follow-up of suspicious palpable abnormalities. Note on Moa scores and lifetime risk: 1. A Oma score greater than 3% is considered moderate risk. If this is the case, consider specialist referral to assess eligibility for a risk reducing agent. 2. If overall lifetime risk for the development of breast cancer is 20% or higher, the patient may qualify for future screening with alternating mammogram and breast MRI. [facility], , 03/06/2024 1:11 PM. Electronically signed and approved by: Evens Holden M.D. Radiologis
== END | disposition home or self-care (01) ==
LOC: RADMAMWWP 12:56
PROVIDERS: ATTEND Internal Medicine
DX: R92.8 Other abnormal and inconclusive findings on diagnostic imaging of breast (principal); Z78.0 Asymptomatic menopausal state; R92.331 Mammographic heterogeneous density, right breast
CPT/HCPCS: 77065; G0279; 77061

== ENCOUNTER → 2024-11-10 | Outpatient (CLI) | payer MEDICARE ==
--- NOTE | 2024-11-10 17:58 | MM ---
Reason for Exam: Screening (asymptomatic). Last mammogram was performed 1 year(s) and 2 month(s) ago. Patient History: Menarche at age 13. First Full-Term at age 25. Hysterectomy at age 33. Postmenopausal. Patient has history of breast feeding. Risk Values: Oma 5 year model risk: 1.5%. NCI Lifetime model risk: 2.1%. Prior Study Comparison: 08/21/2023 Bilateral MG 3D screening mammo w/cad, [facility]. 08/27/2023 Right MG 3D work up w/cad RT, [facility]. 03/06/2024 Right MG 3D diag mammo w/cad RT, [facility]. Tissue Density: The breasts are heterogeneously dense, which may obscure small masses. Findings: Analyzed By CAD. Chronic nodularity on the right. Diffuse bilateral punctate, secretory, and round calcifications. There is no suspicious group of microcalcifications or new suspicious mass in either breast. Overall Assessment: Benign, BI-RAD 2 Management: Screening Mammogram of both breasts in 1 year. Patient should continue monthly self-breast exams. A clinical breast exam by your physician is recommended on an annual basis. This exam should not preclude additional follow-up of suspicious palpable abnormalities. Note on Oma scores and lifetime risk: 1. A Oma score greater than 3% is considered moderate risk. If this is the case, consider specialist referral to assess eligibility for a risk reducing agent. 2. If overall lifetime risk for the development of breast cancer is 20% or higher, the patient may qualify for future screening with alternating mammogram and breast MRI. [facility], , 11/10/2024 5:55 PM. Electronically signed and approved by: Daron Chrsitopher M.D. Radiologist
== END | disposition home or self-care (01) ==
LOC: RADMAMWWP 10:42
PROVIDERS: ATTEND Internal Medicine
DX: Z12.31 Encounter for screening mammogram for malignant neoplasm of breast (principal); R92.333 Mammographic heterogeneous density, bilateral breasts; Z78.0 Asymptomatic menopausal state
CPT/HCPCS: 77063; 77067